=== PATIENT | female | born 1955 | race Caucasian/White ===

== ENCOUNTER 2017-05-31 17:35 | Inpatient (IN) | payer MEDICAID ==
[~2017-05-31] VITALS: Ht 167.6 cm; Wt 142.7 kg
[~2017-05-31 17:35] MED LIST: TRAMADOL HCL50 MG PO
[2017-05-31 17:44] VITALS: BP 176/97
[2017-05-31 18:10] LABS: BASO % 0.3 % (0.0-1.0); EOS # 0.4 10*3/uL (0.0-0.4); HEMATOCRIT 42.1 % (37.0-47.0); HEMOGLOBIN 13.1 g/dl (12.0-16.0); LYMPH # 2.6 10*3/uL (1.3-4.4); LYMPH % 28.8 % (27.0-41.0); MEAN CELL VOLUME 92.9 fl (81.0-99.0); MEAN CORPUSCULAR HGB 28.9 pg (27.0-31.0); MEAN CORPUSCULAR HGB CONC 31.1 g/dl (33.0-37.0); MEAN PLATELET VOLUME 9.4 fl (9.6-12.3); MONO # 0.6 10*3/uL (0.1-1.0); MONO % 7.2 % (3.0-9.0); NEUT # 5.2 10*3/uL (2.3-7.9); NEUT % 58.4 % (47.0-73.0); PLATELET COUNT AUTOMATED 235 10*3/uL (130-400); RED BLOOD COUNT 4.53 10*6/uL (4.10-5.10); RED CELL DISTRI WIDTH 13.8 % (0-14.5); WHITE BLOOD COUNT 8.8 10*3/uL (4.8-10.8)
[2017-05-31 18:26] LABS: ALBUMIN 3.1 gm/dl (3.1-4.5); ALKALINE PHOSPHATASE 111 U/L (45-117); BILIRUBIN, TOTAL 0.4 mg/dl (0.2-1.0); BUN 13 mg/dl (7-24); CARBON DIOXIDE 33 mmol/L (21-32); CHLORIDE 101 mmol/L (98-107); EST GLOM FILT AFRICAN AMERICAN > 60 ml/min; GLUCOSE 119 mg/dL (65-99); POTASSIUM 4.2 mmol/L (3.5-5.1); SGOT/AST 20 IU/L (3-35); SGPT/ALT 20 U/L (12-78); SODIUM 141 mmol/L (136-145); TOTAL PROTEIN 7.1 gm/dL (6.4-8.2)
[2017-05-31 18:29] LABS: TROPONIN I < 0.015 ng/ml (<0.045)
[2017-05-31 18:48] VITALS: BP 138/95
[2017-05-31 19:01] VITALS: BP 138/85
[2017-05-31 20:07] LABS: LA>2 REFLEX 2 HR DRAW NOW
[2017-05-31 20:39] VITALS: BP 153/91
[2017-05-31 21:05] VITALS: BP 156/74
[2017-06-01] VITALS: BP 109/70
[2017-06-01 01:47] LABS: CPK 44 U/L (26-192)
[2017-06-01 01:48] LABS: CKMB < 0.5 ng/ml (0.5-3.6)
[2017-06-01 06:26] LABS: BASO % 0.4 % (0.0-1.0); EOS # 0.4 10*3/uL (0.0-0.4); HEMATOCRIT 43.2 % (37.0-47.0); IG # 0.1 10*3/uL (0.0-0.1); LYMPH # 1.8 10*3/uL (1.3-4.4); LYMPH % 22.4 % (27.0-41.0); MEAN CELL VOLUME 95.2 fl (81.0-99.0); MEAN CORPUSCULAR HGB 28.6 pg (27.0-31.0); MEAN CORPUSCULAR HGB CONC 30.1 g/dl (33.0-37.0); MEAN PLATELET VOLUME 9.3 fl (9.6-12.3); MONO # 0.5 10*3/uL (0.1-1.0); MONO % 6.8 % (3.0-9.0); NEUT # 5.2 10*3/uL (2.3-7.9); NEUT % 64.8 % (47.0-73.0); PLATELET COUNT AUTOMATED 228 10*3/uL (130-400); RED BLOOD COUNT 4.54 10*6/uL (4.10-5.10); RED CELL DISTRI WIDTH 13.9 % (0-14.5)
[2017-06-01 06:38] LABS: CKMB < 0.5 ng/ml (0.5-3.6); CPK 40 U/L (26-192)
[2017-06-01 06:58] LABS: BUN 13 mg/dl (7-24); CARBON DIOXIDE 37 mmol/L (21-32); CHLORIDE 99 mmol/L (98-107); EST GLOM FILT AFRICAN AMERICAN > 60 ml/min; GLUCOSE 162 mg/dL (65-99); POTASSIUM 4.3 mmol/L (3.5-5.1); SODIUM 140 mmol/L (136-145)
[2017-06-01 07:09] LABS: INTERNATIONAL NORM RATIO 1.1 (2.0-3.5); PROTHROMBIN TIME 11.8 SECONDS (9.0-12.4)
[2017-06-01 07:42] LABS: FOLIC ACID 11.11 ng/mL (>5.38)
[2017-06-01 08:00] VITALS: BP 146/74
[2017-06-01 12:00] VITALS: BP 140/64
[2017-06-01 12:12] LABS: CPK 41 U/L (26-192)
[2017-06-01 12:13] LABS: CKMB < 0.5 ng/ml (0.5-3.6)
[2017-06-01 16:09] VITALS: BP 153/82
[2017-06-01 20:00] VITALS: BP 159/81
[2017-06-02] VITALS: BP 130/77
[2017-06-02 06:04] LABS: BASO % 0.2 % (0.0-1.0); HEMATOCRIT 42.4 % (37.0-47.0); IG # 0.1 10*3/uL (0.0-0.1); LYMPH # 1.2 10*3/uL (1.3-4.4); LYMPH % 9.6 % (27.0-41.0); MEAN CELL VOLUME 92.6 fl (81.0-99.0); MEAN CORPUSCULAR HGB 28.4 pg (27.0-31.0); MEAN CORPUSCULAR HGB CONC 30.7 g/dl (33.0-37.0); MEAN PLATELET VOLUME 10.1 fl (9.6-12.3); MONO # 0.1 10*3/uL (0.1-1.0); MONO % 0.8 % (3.0-9.0); NEUT # 10.8 10*3/uL (2.3-7.9); NEUT % 88.7 % (47.0-73.0); PLATELET COUNT AUTOMATED 244 10*3/uL (130-400); RED BLOOD COUNT 4.58 10*6/uL (4.10-5.10); RED CELL DISTRI WIDTH 13.4 % (0-14.5); WHITE BLOOD COUNT 12.1 10*3/uL (4.8-10.8)
[2017-06-02 06:14] LABS: ALKALINE PHOSPHATASE 95 U/L (45-117); BILIRUBIN, TOTAL 0.4 mg/dl (0.2-1.0); BUN 20 mg/dl (7-24); CARBON DIOXIDE 35 mmol/L (21-32); CHLORIDE 94 mmol/L (98-107); CHOLESTEROL 188 mg/dL (<200); EST GLOM FILT AFRICAN AMERICAN > 60 ml/min; GLUCOSE 275 mg/dL (65-99); HDL CHOLESTEROL 48 mg/dl (40-60); LDL CHOLESTEROL 123 mg/dL (9-159); POTASSIUM 4.6 mmol/L (3.5-5.1); SGOT/AST 14 IU/L (3-35); SGPT/ALT 17 U/L (12-78); SODIUM 137 mmol/L (136-145); TRIGLYCERIDES 85 mg/dl (<150); VLDL CHOLESTEROL 17 mg/dL (6-40)
[2017-06-02 08:00] VITALS: BP 124/52
[2017-06-02 12:00] VITALS: BP 132/73
[2017-06-02 16:08] LABS: ABG BASE EXCESS 8.3 mmol/L (-2.0-2.0); ABG CO2 CONTENT 34.6 mmol/L (23-27); ABG HCO3 33.1 mmol/l (22-26); ABG TEMPERATURE 98.1 F (98.0-99.0); ARTERIAL BLOOD GAS PH 7.457 (7.35-7.45); ARTERIAL BLOOD GAS PO2 64.5 mmHg (80-90)
[2017-06-02 20:00] VITALS: BP 147/89
[2017-06-03] VITALS: BP 150/90
[2017-06-03 07:03] LABS: BUN 28 mg/dl (7-24); CARBON DIOXIDE 38 mmol/L (21-32); CHLORIDE 93 mmol/L (98-107); EST GLOM FILT AFRICAN AMERICAN > 60 ml/min; GLUCOSE 284 mg/dL (65-99); SODIUM 137 mmol/L (136-145)
[2017-06-03 08:00] VITALS: BP 148/78
[2017-06-03 12:00] VITALS: BP 139/75
[2017-06-03] MEDS ORDERED: FUROSEMIDE40 MG PO (14:45)
[2017-06-03] MEDS ORDERED: K-TAB10 MEQ PO (14:45)
[2017-06-03] MEDS ORDERED: VITAMIN D1000 IU PO (14:45)
[2017-06-03] MEDS ORDERED: METFORMIN500 MG PO (14:45)
[2017-06-03] MEDS ORDERED: PREDNISONE10 MG PO (14:45)
[2017-06-03] MEDS ORDERED: PROVENTIL0.09 MG/A1 INH (14:45)
[2017-06-03] MEDS ORDERED: DOXYCYCLINE100 M3 PO (14:45)
[2017-06-03] MEDS ORDERED: DULE1ARO INH (14:45)
[2017-06-03] MEDS ORDERED: LISINOPRIL5 MG PO (14:45)
== END 2017-06-03 15:30 | disposition home health service (06) | DRG 291 ==
LOC: ED 17:35 → 5E 19:27 → EDHOLD 19:27 → 5E 19:53
PROVIDERS: Family Medicine; Internal Medicine; Internal Medicine Cardiovascular Disease; Internal Medicine Critical Care Medicine; Nurse Practitioner Family
DX: I50.33 Acute on chronic diastolic (congestive) heart failure (principal); J96.01 Acute respiratory failure with hypoxia; E44.0 Moderate protein-calorie malnutrition; Z68.43 Body mass index [BMI] 50.0-59.9, adult; J45.901 Unspecified asthma with (acute) exacerbation; E11.65 Type 2 diabetes mellitus with hyperglycemia; E66.01 Morbid (severe) obesity due to excess calories; R03.0 Elevated blood-pressure reading, without diagnosis of hypertension; G47.33 Obstructive sleep apnea (adult) (pediatric); F41.1 Generalized anxiety disorder; D72.829 Elevated white blood cell count, unspecified; G40.909 Epilepsy, unspecified, not intractable, without status epilepticus; Z88.8 Allergy status to other drugs, medicaments and biological substances; Z90.49 Acquired absence of other specified parts of digestive tract; Z87.891 Personal history of nicotine dependence; Z80.9 Family history of malignant neoplasm, unspecified; Z90.710 Acquired absence of both cervix and uterus

== ENCOUNTER → 2017-06-10 | Outpatient (CLI) | payer MEDICAID ==
[~2017-06-10] MED LIST changes: +DOXYCYCLINE100 M3 PO; +DULE1ARO INH; +FUROSEMIDE40 MG PO; +K-TAB10 MEQ PO; +LISINOPRIL5 MG PO; +METFORMIN500 MG PO; +PREDNISONE10 MG PO; +PROVENTIL0.09 MG/A1 INH; +VITAMIN D1000 IU PO
== END | disposition home or self-care (01) ==
LOC: RESCLI 02:18
DX: E11.9 Type 2 diabetes mellitus without complications (principal); I10 Essential (primary) hypertension; G47.33 Obstructive sleep apnea (adult) (pediatric); I50.9 Heart failure, unspecified; M19.90 Unspecified osteoarthritis, unspecified site

== ENCOUNTER → 2017-09-08 | Outpatient (CLI) | payer OTHER ==
--- NOTE | 2017-09-08 14:42 | NUR ---
pt was assessed for home oxygen. pt has o2 now but has not used it for a very long time. she was assessed to see if it is still needed. pt did not qualify for home o2 pt spo2 at rest 96% ra, hr 102, rr 18, B/P 130/72 PT AMULATED APPROXIMATELY 100FT SPO2 93-95% RA AT REST SPO2 97% RA, HR 115, RR 20, BP132/72 PT IS TO CONTACT CLINIC WITH INFORMATION ON THE HOME CARE INFORMATION ABD RESPIRATORY CAN CALL AND CANCEL O2
== END | disposition home or self-care (01) ==
LOC: RESCLI 04:35
DX: E11.9 Type 2 diabetes mellitus without complications (principal); G47.33 Obstructive sleep apnea (adult) (pediatric); I11.0 Hypertensive heart disease with heart failure; I50.9 Heart failure, unspecified

== ENCOUNTER 2019-11-01 14:48 | Inpatient (IN) | payer MEDICARE ==
[~2019-11-01] VITALS: Ht 167.6 cm; Wt 131.8 kg
[2019-11-01 14:56] VITALS: BP 147/80
[2019-11-01 15:21] LABS: BASO % 0.4 % (0.0-1.0); EOS # 0.2 10*3/uL (0.0-0.4); EOS % 2.6 % (1.0-4.0); HEMATOCRIT 43.7 % (37.0-47.0); HEMOGLOBIN 13.6 g/dl (12.0-16.0); LYMPH # 2.7 10*3/uL (1.3-4.4); LYMPH % 28.6 % (27.0-41.0); MEAN CELL VOLUME 92.2 fl (81.0-99.0); MEAN CORPUSCULAR HGB 28.7 pg (27.0-31.0); MEAN CORPUSCULAR HGB CONC 31.1 g/dl (33.0-37.0); MEAN PLATELET VOLUME 9.7 fl (9.6-12.3); MONO # 0.7 10*3/uL (0.1-1.0); NEUT # 5.6 10*3/uL (2.3-7.9); PLATELET COUNT AUTOMATED 283 10*3/uL (130-400); RED BLOOD COUNT 4.74 10*6/uL (4.10-5.10); RED CELL DISTRI WIDTH 13.2 % (0-14.5); WHITE BLOOD COUNT 9.3 10*3/uL (4.8-10.8)
[2019-11-01 15:36] LABS: ACT PARTIAL THROMBO TIME 27.2 SECONDS (20.0-32.1); INTERNATIONAL NORM RATIO 1.1 (2.0-3.5)
[2019-11-01 15:40] LABS: ALKALINE PHOSPHATASE 94 U/L (45-117); BUN 18 mg/dl (7-24); CHLORIDE 105 mmol/L (98-107); CREATININE 1.03 mg/dL (0.55-1.02); POTASSIUM 4.1 mmol/L (3.5-5.1); SGOT/AST 17 IU/L (3-35); SGPT/ALT 19 U/L (12-78); SODIUM 141 mmol/L (136-145)
[2019-11-01 15:49] LABS: TROPONIN I < 0.015 ng/ml (<0.045)
--- NOTE | 2019-11-01 16:09 | NUR ---
THE PT VERBALIZED THE BREATHING TREATMENT HELP HER BREATHING. CALL LIGHT IS WITHIN REACH. FAMILY IS AT THE BEDSIDE
[2019-11-01 17:50] VITALS: BP 146/71
--- NOTE | 2019-11-01 18:36 | NUR ---
[facility] , under the services of FREDDY Ryan DO with a diagnosis of COPD. Chief complaint is SOB. Patient arrived via bed from [place]. Monitor applied. Initial assessment completed. Vital signs taken and recorded. FREDDY RYAN DO notified of admission to the unit. Orders received. See assessment for past medical history, medications and allergies. Patient and/or family oriented to unit. [facility] reviewed. Clothing/patient valuable form completed. MALA DEWEY
--- NOTE | 2019-11-01 18:58 | NUR ---
ANSWERING SERVICE FOR DR. TAYLOR NOTIFIED OF NEW CONSULT, ROUTINE CONSULT.
--- NOTE | 2019-11-01 19:15 | NUR ---
PT DOES NOT KNOW HOME MEDICATIONS, FAMILY WILL BRING IN LIST TONIGHT
[2019-11-01 20:00] VITALS: BP 145/85
[2019-11-01] MEDS ORDERED: LASIX20 MG PO (21:43)
[2019-11-01] MEDS ORDERED: Amaryl2 MG PO (21:43)
[2019-11-01] MEDS ORDERED: CELEBREX100 MG PO (21:44)
[2019-11-01] MEDS ORDERED: ADVAIR 250/501 EA PO (21:45)
[2019-11-02] VITALS: BP 132/62
--- NOTE | 2019-11-02 01:38 | NUR ---
Patient resting quietly with no c/o discomfort. Respirations easy and regular. Vital signs stable. No overt distress. MAYE GUAJARDO
[2019-11-02 06:55] LABS: BASO % 0.1 % (0.0-1.0); EOS % 0.1 % (1.0-4.0); HEMATOCRIT 43.8 % (37.0-47.0); HEMOGLOBIN 13.8 g/dl (12.0-16.0); LYMPH # 1.4 10*3/uL (1.3-4.4); MEAN CELL VOLUME 91.6 fl (81.0-99.0); MEAN CORPUSCULAR HGB 28.9 pg (27.0-31.0); MEAN CORPUSCULAR HGB CONC 31.5 g/dl (33.0-37.0); MEAN PLATELET VOLUME 10.2 fl (9.6-12.3); MONO # 0.1 10*3/uL (0.1-1.0); MONO % 0.7 % (3.0-9.0); NEUT # 9.1 10*3/uL (2.3-7.9); NEUT % 85.1 % (47.0-73.0); PLATELET COUNT AUTOMATED 275 10*3/uL (130-400); RED BLOOD COUNT 4.78 10*6/uL (4.10-5.10); RED CELL DISTRI WIDTH 13.2 % (0-14.5); WHITE BLOOD COUNT 10.7 10*3/uL (4.8-10.8)
[2019-11-02 07:14] LABS: ALBUMIN 3.1 gm/dl (3.1-4.5); BUN 17 mg/dl (7-24); CHLORIDE 105 mmol/L (98-107); CHOLESTEROL 191 mg/dL (<200); CREATININE 0.85 mg/dL (0.55-1.02); HDL CHOLESTEROL 46 mg/dl (40-60); LDL CHOLESTEROL 130 mg/dL (9-159); PHOSPHOROUS 2.3 mg/dL (2.5-4.9); POTASSIUM 4.5 mmol/L (3.5-5.1); SGOT/AST 14 IU/L (3-35); SGPT/ALT 19 U/L (12-78); SODIUM 139 mmol/L (136-145); TOTAL PROTEIN 7.3 gm/dL (6.4-8.2); TRIGLYCERIDES 76 mg/dl (<150); VLDL CHOLESTEROL 15 mg/dL (6-40)
[2019-11-02 07:20] LABS: ALKALINE PHOSPHATASE 100 U/L (45-117); THYROID STIM HORMONE (HS) 0.653 uIU/ml (0.358-4.75)
[2019-11-02 08:00] VITALS: BP 140/80
--- NOTE | 2019-11-02 08:20 | NUR ---
PT RESTING IN BED. RESP-EASY AND REGULAR. NO C/O AT THIS TIME. CALL LIGHT IN REACH. SEE SHIFT ASSESSMENT.
[2019-11-02 12:00] VITALS: BP 116/71
--- NOTE | 2019-11-02 12:13 | NUR ---
Station Installation Supervisor in to talk to patient. Patient states lives at HOME with DAUGHTER. There are FEW steps in the home. Physician: CHARLOTTE SMITH Pharmacy: [facility] Home health services: NONE Patient's level of ADLs: INDEPENDENT Patient has working utilities: YES DME: HAS HOME O2 SHE WEARS AT HS. STATES COMPANY IN [employer] BUT SHE DOES NOT KNOW NAME Follow-up physician's appointment after d/c: YES Does patient want to access PORTAL?: NO Discharge plan PT LIVES AT HOME WITH HER DAUGHTER AND STATES SHE IS INDEPENDENT IN HER CARE. DENIES SHE WILL HAVE ANY HOME NEEDS ON DISCHARGE. STATES SHE ALREADY HAS HOME O2 SHE USES AT [facility], [facility] [facility] [place]. PLANS TO RETURN BACK HOME WITH DAUGHTER WHEN MEDICALLY STABLE. WILL CONTINUE TO FOLLOW. STATES SHE WILL HAVE A RIDE HOME.. HIGINIO CAMPUZANO
--- NOTE | 2019-11-02 12:34 | NUR ---
RESTING IN BED. NO C/O AT THIS TIME. CALL LIGHT IN REACH.
--- NOTE | 2019-11-02 14:06 | NUR ---
CALLED DR. ZELAYA MADE AWARE HOME MEDICATIONS NEED ORDERED.
--- NOTE | 2019-11-02 14:30 | NUR ---
RESTING IN BED. NO C/O AT THIS TIME. CALL LIGHT IN REACH.
[2019-11-02 16:00] VITALS: BP 117/60
--- NOTE | 2019-11-02 16:00 | NUR ---
RESTING IN BED. NO C/O AT THIS TIME. CALL LIGHT IN REACH. SEE SHIFT ASSESSMETN.
--- NOTE | 2019-11-02 19:30 | NUR ---
Patient resting quietly with no c/o discomfort. Respirations easy and regular. Vital signs stable. No overt distress. VIRI CASTANON
[2019-11-02 20:00] VITALS: BP 127/58
[2019-11-03] VITALS: BP 123/57
--- NOTE | 2019-11-03 01:28 | NUR ---
24 HR CHART CHECK COMPLETED
[2019-11-03 06:18] LABS: BASO % 0.2 % (0.0-1.0); EOS # 0.1 10*3/uL (0.0-0.4); EOS % 0.3 % (1.0-4.0); HEMATOCRIT 41.5 % (37.0-47.0); LYMPH # 3.6 10*3/uL (1.3-4.4); LYMPH % 21.8 % (27.0-41.0); MEAN CELL VOLUME 92.6 fl (81.0-99.0); MEAN CORPUSCULAR HGB CONC 31.3 g/dl (33.0-37.0); MEAN PLATELET VOLUME 10.3 fl (9.6-12.3); MONO # 0.9 10*3/uL (0.1-1.0); MONO % 5.5 % (3.0-9.0); NEUT # 11.8 10*3/uL (2.3-7.9); NEUT % 71.7 % (47.0-73.0); PLATELET COUNT AUTOMATED 287 10*3/uL (130-400); RED BLOOD COUNT 4.48 10*6/uL (4.10-5.10); RED CELL DISTRI WIDTH 13.6 % (0-14.5); WHITE BLOOD COUNT 16.4 10*3/uL (4.8-10.8)
[2019-11-03 06:33] LABS: BUN 18 mg/dl (7-24); CHLORIDE 105 mmol/L (98-107); CREATININE 0.84 mg/dL (0.55-1.02); POTASSIUM 3.8 mmol/L (3.5-5.1); SODIUM 140 mmol/L (136-145)
[2019-11-03 08:00] VITALS: BP 140/60
--- NOTE | 2019-11-03 08:21 | NUR ---
ASSESSMENT COMPLETED AND DOCUMENTED, PT RESTING IN BED WITH NO DISCOMFORT, WILL CONTINUE TO MONITOR, CALL LIGHT WITHIN REACH MYRON GANN
--- NOTE | 2019-11-03 09:30 | NUR ---
PATIENT RESTING COMFORTABLY IN BED RESPIRATIONS EASY, NO COMPLAINTS OF SOB, WAITING TO GO GET STRESS TEST MYRON JAVIERNRCC
--- NOTE | 2019-11-03 09:53 | NUR ---
PT JUST LEFT THE FLOOR FOR STRESS TEST VIA TRANSPORT. O2 ON RA. MYRON LAKHANI SPNRCC
--- NOTE | 2019-11-03 09:55 | NUR ---
TO STRESS TEST VIA W/C. NO VOICED C/O AT THIS TIME. ACCOMPANIED BY STUDENT NURSE.
--- NOTE | 2019-11-03 10:40 | NUR ---
INFORMED CONSENT OBTAINED FOR LEXISCAN NUCLEAR STRESS TEST WITH DR. MAURICE. RESTING EKG NSR WITH A RESTING HR OF 86 WITH BP OF 122/84. LUNGS CLEAR WITH DIMINISHED BREATH SOUNDS WITH SPO2 OF 92% ON ROOM AIR. PT COMPLETED A 1:00 LEXISCAN PROTOCOL RECEIVING LEXISCAN 0.4 MG IV OVER 10 SECONDS. HAD NO CHEST PAIN OR ANY EKG CHANGES. HAD C/O "ODD FEELING" THAT SUBSIDED IN RECOVERY. HAD A PEAK HR OF 103 WITH BP OF 124/84. LAST RECOVERY HR OF 97 WITH BP OF 120/82. AWAITING SCANNING IN STABLE CONDITION.
[2019-11-03 12:10] VITALS: BP 148/78
--- NOTE | 2019-11-03 12:10 | NUR ---
RETURN TO FLOOR. SITTING UP ON SIDE OF BED ON CELL PHONE. NO VOICED C/O AT THIS TIME. PLEASANT AND COOPERATIVE.
--- NOTE | 2019-11-03 12:54 | NUR ---
PT CONTINUES TO DENY NEEDS AT HOME ON DISCHARGE. WILL CONTINUE TO FOLLOW.
--- NOTE | 2019-11-03 13:28 | NUR ---
PATIENT SITTING UP ON SIDE OF BED, NO COMPLAINTS OF DIZZINESS,SOB,DYSURIA CALL LIGHT IN REACH, GAVE REPORT TO SERA LAKHANI SPALEKSCC
[2019-11-03] MEDS ORDERED: POTASSIUM CHLO10 ME5 PO (14:07)
[2019-11-03] MEDS ORDERED: LASIX40 MG PO (14:07)
[2019-11-03] MEDS ORDERED: PREDNISONE10 MG PO (14:07)
--- NOTE | 2019-11-03 15:43 | NUR ---
[facility] Discharge instructions reviewed with patient/family. Patient receptive and verbalizes understanding. Follow-up care arranged. Written instructions given to patient/family. MALA DEWEY
== END 2019-11-03 16:03 | disposition home or self-care (01) | DRG 190 ==
LOC: ED 14:48 → 4E 17:14 → EDHOLD 17:14 → 4E 17:39
PROVIDERS: Emergency Medicine; Internal Medicine; ADMIT Internal Medicine
DX: J44.1 Chronic obstructive pulmonary disease with (acute) exacerbation (principal); N17.0 Acute kidney failure with tubular necrosis; E44.0 Moderate protein-calorie malnutrition; I50.32 Chronic diastolic (congestive) heart failure; Z68.42 Body mass index [BMI] 45.0-49.9, adult; R07.89 Other chest pain; G47.33 Obstructive sleep apnea (adult) (pediatric); E83.39 Other disorders of phosphorus metabolism; M19.90 Unspecified osteoarthritis, unspecified site; I11.0 Hypertensive heart disease with heart failure; E11.65 Type 2 diabetes mellitus with hyperglycemia; G40.909 Epilepsy, unspecified, not intractable, without status epilepticus; I07.1 Rheumatic tricuspid insufficiency; E83.41 Hypermagnesemia; E66.01 Morbid (severe) obesity due to excess calories; Z87.891 Personal history of nicotine dependence; Z79.899 Other long term (current) drug therapy; Z90.710 Acquired absence of both cervix and uterus; Z90.49 Acquired absence of other specified parts of digestive tract; Z80.1 Family history of malignant neoplasm of trachea, bronchus and lung; Z83.6 Family history of other diseases of the respiratory system; Z82.49 Family history of ischemic heart disease and other diseases of the circulatory system; Z99.81 Dependence on supplemental oxygen

== ENCOUNTER 2019-11-11 15:22 | Emergency (ER) | payer MEDICARE ==
[~2019-11-11] VITALS: Wt 104.3 kg
[~2019-11-11 15:22] MED LIST changes: +ADVAIR 250/501 EA PO; +Amaryl2 MG PO; +CELEBREX100 MG PO; +LASIX20 MG PO; +LASIX40 MG PO; +POTASSIUM CHLO10 ME5 PO
[2019-11-11 15:59] LABS: BASO % 0.3 % (0.0-1.0); EOS # 0.3 10*3/uL (0.0-0.4); EOS % 2.4 % (1.0-4.0); HEMATOCRIT 49.1 % (37.0-47.0); HEMOGLOBIN 15.2 g/dl (12.0-16.0); LYMPH # 3.6 10*3/uL (1.3-4.4); LYMPH % 27.7 % (27.0-41.0); MEAN CELL VOLUME 91.4 fl (81.0-99.0); MEAN CORPUSCULAR HGB 28.3 pg (27.0-31.0); MEAN PLATELET VOLUME 9.9 fl (9.6-12.3); MONO # 0.8 10*3/uL (0.1-1.0); MONO % 6.1 % (3.0-9.0); NEUT # 8.3 10*3/uL (2.3-7.9); NEUT % 62.9 % (47.0-73.0); PLATELET COUNT AUTOMATED 270 10*3/uL (130-400); RED BLOOD COUNT 5.37 10*6/uL (4.10-5.10); RED CELL DISTRI WIDTH 13.5 % (0-14.5); WHITE BLOOD COUNT 13.2 10*3/uL (4.8-10.8)
[2019-11-11 16:19] LABS: ALBUMIN 3.1 gm/dl (3.1-4.5); ALKALINE PHOSPHATASE 121 U/L (45-117); BUN 18 mg/dl (7-24); CHLORIDE 103 mmol/L (98-107); CREATININE 0.99 mg/dL (0.55-1.02); SGOT/AST 19 IU/L (3-35); SGPT/ALT 25 U/L (12-78); SODIUM 138 mmol/L (136-145); TOTAL PROTEIN 6.6 gm/dL (6.4-8.2)
[2019-11-11 16:28] LABS: TROPONIN I < 0.015 ng/ml (<0.045)
[2019-11-11 19:12] VITALS: BP 127/61
== END 2019-11-11 19:55 | disposition left against medical advice (07) ==
LOC: ED 15:22
PROVIDERS: Emergency Medicine
DX: R55 Syncope and collapse (principal); G40.909 Epilepsy, unspecified, not intractable, without status epilepticus; M19.90 Unspecified osteoarthritis, unspecified site; J44.9 Chronic obstructive pulmonary disease, unspecified; E11.9 Type 2 diabetes mellitus without complications; I10 Essential (primary) hypertension; E66.01 Morbid (severe) obesity due to excess calories; G47.33 Obstructive sleep apnea (adult) (pediatric); Z90.49 Acquired absence of other specified parts of digestive tract; Z90.710 Acquired absence of both cervix and uterus; Z98.890 Other specified postprocedural states; Z87.891 Personal history of nicotine dependence; Z79.899 Other long term (current) drug therapy

== ENCOUNTER → 2021-06-13 | Outpatient (CLI) | payer OTHER ==
[~2021-06-13] MED LIST changes: +ALBUTEROL2.5 MG/0.5 INH; +BREO ELLIPTA 21 EACH INH; +LEVETIRACETAM500 MG PO; +OMNICEF300 MG PO; +POTASSIUM GLUCO99 MG PO; +PROVENTIL HFA6.7 GM INH
== END | disposition home or self-care (01) ==
LOC: RAD 11:25
PROVIDERS: ATTEND Nurse Practitioner Family
DX: J18.9 Pneumonia, unspecified organism (principal); J44.9 Chronic obstructive pulmonary disease, unspecified; Z86.79 Personal history of other diseases of the circulatory system

== ENCOUNTER 2021-06-28 18:20 | Inpatient (IN) | payer OTHER ==
[~2021-06-28] VITALS: Ht 167.6 cm; Wt 132.4 kg
[2021-06-28 18:20] VITALS: BP 122/66
[~2021-06-28 18:20] MED LIST changes: -ALBUTEROL2.5 MG/0.5 INH; -BREO ELLIPTA 21 EACH INH; -LEVETIRACETAM500 MG PO; -OMNICEF300 MG PO; -POTASSIUM GLUCO99 MG PO; -PROVENTIL HFA6.7 GM INH
[2021-06-28 18:36] LABS: BASO # 0.1 10*3/uL (0.0-0.1); BASO % 0.3 % (0.0-1.0); EOS # 0.1 10*3/uL (0.0-0.4); EOS % 0.8 % (1.0-4.0); HEMATOCRIT 39.4 % (37.0-47.0); LYMPH # 2.2 10*3/uL (1.3-4.4); LYMPH % 12.9 % (27.0-41.0); MEAN CELL VOLUME 90.2 fl (81.0-99.0); MEAN CORPUSCULAR HGB 27.5 pg (27.0-31.0); MEAN CORPUSCULAR HGB CONC 30.5 g/dl (33.0-37.0); MEAN PLATELET VOLUME 9.1 fl (9.6-12.3); MONO % 6.1 % (3.0-9.0); NEUT # 13.5 10*3/uL (2.3-7.9); NEUT % 79.3 % (47.0-73.0); PLATELET COUNT AUTOMATED 342 10*3/uL (130-400); RED BLOOD COUNT 4.37 10*6/uL (4.10-5.10); RED CELL DISTRI WIDTH 14.1 % (0-14.5)
[2021-06-28 18:52] LABS: ALBUMIN 2.7 gm/dl (3.1-4.5); ALKALINE PHOSPHATASE 92 U/L (45-117); BUN 19 mg/dl (7-24); CHLORIDE 103 mmol/L (98-107); CREATININE 0.95 mg/dL (0.55-1.02); POTASSIUM 4.2 mmol/L (3.5-5.1); SGOT/AST 8 IU/L (3-35); SGPT/ALT 14 U/L (12-78); SODIUM 138 mmol/L (136-145); TOTAL PROTEIN 7.5 gm/dL (6.4-8.2)
[2021-06-28 19:01] VITALS: BP 108/60
[2021-06-28 19:03] LABS: TROPONIN I < 0.015 ng/ml (<0.045)
[2021-06-28 20:10] VITALS: BP 107/50
[2021-06-28 21:19] VITALS: BP 126/59
[2021-06-28 23:18] VITALS: BP 124/83
[2021-06-29 00:19] VITALS: BP 112/54
[2021-06-29 01:01] VITALS: BP 116/57
[2021-06-29] MEDS ORDERED: POTASSIUM GLUCO99 MG PO (04:20)
[2021-06-29] MEDS ORDERED: LEVETIRACETAM500 MG PO (04:20)
[2021-06-29] MEDS ORDERED: BREO ELLIPTA 21 EACH INH (04:22)
[2021-06-29] MEDS ORDERED: PROVENTIL HFA6.7 GM INH (04:26)
[2021-06-29 04:27] VITALS: BP 139/75
[2021-06-29 04:40] LABS: ABG BASE EXCESS 2.7 mmol/L (-2.0-2.0); ARTERIAL BLOOD GAS PH 7.432 (7.35-7.45); ARTERIAL BLOOD GAS PO2 65.7 (80-90)
[2021-06-29 05:18] LABS: ALBUMIN 2.7 gm/dl (3.1-4.5); BUN 16 mg/dl (7-24); CHLORIDE 104 mmol/L (98-107); CREATININE 0.75 mg/dL (0.55-1.02); POTASSIUM 4.3 mmol/L (3.5-5.1); SGOT/AST 11 IU/L (3-35); SGPT/ALT 14 U/L (12-78); SODIUM 136 mmol/L (136-145); TOTAL PROTEIN 7.2 gm/dL (6.4-8.2)
[2021-06-29 05:24] LABS: ALKALINE PHOSPHATASE 95 U/L (45-117); FREE T4 1.16 ng/dl (0.76-1.46)
[2021-06-29 06:36] LABS: BASO # 0.1 10*3/uL (0.0-0.1); BASO % 0.3 % (0.0-1.0); EOS # 0.2 10*3/uL (0.0-0.4); EOS % 1.1 % (1.0-4.0); LYMPH # 2.4 10*3/uL (1.3-4.4); LYMPH % 12.3 % (27.0-41.0); MEAN CELL VOLUME 89.6 fl (81.0-99.0); MEAN CORPUSCULAR HGB 27.1 pg (27.0-31.0); MEAN CORPUSCULAR HGB CONC 30.3 g/dl (33.0-37.0); MONO # 1.5 10*3/uL (0.1-1.0); MONO % 7.5 % (3.0-9.0); NEUT # 15.2 10*3/uL (2.3-7.9); NEUT % 77.9 % (47.0-73.0); PLATELET COUNT AUTOMATED 367 10*3/uL (130-400); RED BLOOD COUNT 4.24 10*6/uL (4.10-5.10); RED CELL DISTRI WIDTH 14.3 % (0-14.5); WHITE BLOOD COUNT 19.5 10*3/uL (4.8-10.8)
[2021-06-29 08:29] VITALS: BP 140/60
[2021-06-29] MEDS ORDERED: ALBUTEROL2.5 MG/0.5 INH (14:07)
[2021-06-29 14:30] VITALS: BP 122/58
[2021-06-29 20:00] VITALS: BP 99/83
[2021-06-30] VITALS: BP 129/66
[2021-06-30 06:05] LABS: MEAN CORPUSCULAR HGB 27.3 pg (27.0-31.0); MEAN CORPUSCULAR HGB CONC 30.3 g/dl (33.0-37.0); MEAN PLATELET VOLUME 9.7 fl (9.6-12.3); PLATELET COUNT AUTOMATED 349 10*3/uL (130-400); RED BLOOD COUNT 4.22 10*6/uL (4.10-5.10); RED CELL DISTRI WIDTH 13.8 % (0-14.5)
[2021-06-30 06:18] LABS: BUN 19 mg/dl (7-24); CREATININE 0.82 mg/dL (0.55-1.02)
[2021-06-30 06:50] LABS: SODIUM 137 mmol/L (136-145)
[2021-06-30 06:51] LABS: CHLORIDE 105 mmol/L (98-107)
[2021-06-30 07:27] LABS: PLATELET SUFFICIENCY NORMAL (NORMAL); TOTAL CELLS COUNTED 100 #CELLS
[2021-06-30 08:00] VITALS: BP 140/78
[2021-06-30 12:00] VITALS: BP 104/86
[2021-06-30 15:18] LABS: ACT PARTIAL THROMBO TIME 30.3 SECONDS (20.0-32.1); INTERNATIONAL NORM RATIO 1.2 (2.0-3.5)
[2021-06-30 16:00] VITALS: BP 130/84
[2021-06-30 20:00] VITALS: BP 149/82
[2021-07-01] VITALS: BP 124/75
[2021-07-01 06:13] LABS: HEMATOCRIT 36.9 % (37.0-47.0); MEAN CELL VOLUME 90.2 fl (81.0-99.0); MEAN CORPUSCULAR HGB 27.4 pg (27.0-31.0); MEAN CORPUSCULAR HGB CONC 30.4 g/dl (33.0-37.0); MEAN PLATELET VOLUME 9.7 fl (9.6-12.3); PLATELET COUNT AUTOMATED 393 10*3/uL (130-400); RED BLOOD COUNT 4.09 10*6/uL (4.10-5.10); RED CELL DISTRI WIDTH 13.8 % (0-14.5); WHITE BLOOD COUNT 26.3 10*3/uL (4.8-10.8)
[2021-07-01 06:28] LABS: BUN 28 mg/dl (7-24); CHLORIDE 106 mmol/L (98-107); CREATININE 0.87 mg/dL (0.55-1.02); POTASSIUM 4.6 mmol/L (3.5-5.1); SODIUM 140 mmol/L (136-145)
[2021-07-01 07:33] LABS: PLATELET SUFFICIENCY NORMAL (NORMAL); TOTAL CELLS COUNTED 100 #CELLS
[2021-07-01 08:00] VITALS: BP 152/81
[2021-07-01 12:00] VITALS: BP 152/79
[2021-07-01 16:00] VITALS: BP 135/74
[2021-07-01 20:00] VITALS: BP 150/88
[2021-07-02] VITALS (11 sets, daily range): BP systolic 106–158; BP diastolic 52–94
[2021-07-02 06:04] LABS: HEMATOCRIT 37.9 % (37.0-47.0); MEAN CELL VOLUME 90.5 fl (81.0-99.0); MEAN CORPUSCULAR HGB 27.2 pg (27.0-31.0); MEAN CORPUSCULAR HGB CONC 30.1 g/dl (33.0-37.0); MEAN PLATELET VOLUME 9.6 fl (9.6-12.3); PLATELET COUNT AUTOMATED 378 10*3/uL (130-400); RED BLOOD COUNT 4.19 10*6/uL (4.10-5.10); RED CELL DISTRI WIDTH 13.9 % (0-14.5); WHITE BLOOD COUNT 18.5 10*3/uL (4.8-10.8)
[2021-07-02 06:35] LABS: BUN 27 mg/dl (7-24); CHLORIDE 105 mmol/L (98-107); CREATININE 0.79 mg/dL (0.55-1.02); POTASSIUM 4.3 mmol/L (3.5-5.1); SODIUM 140 mmol/L (136-145)
[2021-07-02 07:54] LABS: PLATELET SUFFICIENCY NORMAL (NORMAL); TOTAL CELLS COUNTED 100 #CELLS
[2021-07-03] VITALS: BP 117/71
[2021-07-03 06:27] LABS: MEAN CELL VOLUME 90.2 fl (81.0-99.0); MEAN CORPUSCULAR HGB 27.1 pg (27.0-31.0); MEAN PLATELET VOLUME 9.4 fl (9.6-12.3); NUCLEATED RED BLOOD CELL 0.2 % (0.0-0.0); PLATELET COUNT AUTOMATED 305 10*3/uL (130-400); RED CELL DISTRI WIDTH 14.4 % (0-14.5); WHITE BLOOD COUNT 12.2 10*3/uL (4.8-10.8)
[2021-07-03 07:02] LABS: BUN 20 mg/dl (7-24); CHLORIDE 104 mmol/L (98-107); CREATININE 0.81 mg/dL (0.55-1.02); POTASSIUM 3.8 mmol/L (3.5-5.1); SODIUM 140 mmol/L (136-145)
[2021-07-03 07:06] LABS: PLATELET SUFFICIENCY NORMAL (NORMAL); TOTAL CELLS COUNTED 100 #CELLS
[2021-07-03 08:00] VITALS: BP 156/85
[2021-07-03 10:07] LABS: ACID FAST SPEC PROCESSING Concentration (.)
[2021-07-03 12:00] VITALS: BP 131/73
[2021-07-03 16:00] VITALS: BP 104/61
[2021-07-03 20:00] VITALS: BP 119/68
[2021-07-04] VITALS: BP 120/73
[2021-07-04 08:00] VITALS: BP 131/73
[2021-07-04 12:00] VITALS: BP 138/68
[2021-07-04] MEDS ORDERED: OMNICEF300 MG PO (12:05)
[2021-07-04] MEDS ORDERED: PREDNISONE10 MG PO (12:05)
== END 2021-07-04 13:49 | disposition home or self-care (01) | DRG 871 ==
LOC: ED 18:20 → 4E 06-29 03:09 → EDHOLD 06-29 03:09 → 4E 06-29 11:59
PROVIDERS: Internal Medicine; Internal Medicine Critical Care Medicine; ADMIT Internal Medicine; ATTEND Internal Medicine
PROC: 5A09357 Assistance with Respiratory Ventilation, Less than 24 Consecutive Hours, Continuous Positive Airway Pressure (ICD-10-PCS; 2021-06-30)
PROC: 5A09357 Assistance with Respiratory Ventilation, Less than 24 Consecutive Hours, Continuous Positive Airway Pressure (ICD-10-PCS; 2021-07-01)
PROC: 0B918ZZ Drainage of Trachea, Via Natural or Artificial Opening Endoscopic (ICD-10-PCS; principal; 2021-07-02)
PROC: 0BB58ZX Excision of Right Middle Lobe Bronchus, Via Natural or Artificial Opening Endoscopic, Diagnostic (ICD-10-PCS; 2021-07-02)
PROC: 3E0F8GC Introduction of Other Therapeutic Substance into Respiratory Tract, Via Natural or Artificial Opening Endoscopic (ICD-10-PCS; 2021-07-02)
PROC: 5A09357 Assistance with Respiratory Ventilation, Less than 24 Consecutive Hours, Continuous Positive Airway Pressure (ICD-10-PCS; 2021-07-02)
PROC: 5A09357 Assistance with Respiratory Ventilation, Less than 24 Consecutive Hours, Continuous Positive Airway Pressure (ICD-10-PCS; 2021-07-03)
DX: A41.9 Sepsis, unspecified organism (principal); E43 Unspecified severe protein-calorie malnutrition; J18.8 Other pneumonia, unspecified organism; E66.2 Morbid (severe) obesity with alveolar hypoventilation; I50.32 Chronic diastolic (congestive) heart failure; J44.0 Chronic obstructive pulmonary disease with (acute) lower respiratory infection; J44.1 Chronic obstructive pulmonary disease with (acute) exacerbation; J96.10 Chronic respiratory failure, unspecified whether with hypoxia or hypercapnia; Z68.42 Body mass index [BMI] 45.0-49.9, adult; G40.909 Epilepsy, unspecified, not intractable, without status epilepticus; M19.90 Unspecified osteoarthritis, unspecified site; E83.41 Hypermagnesemia; I11.0 Hypertensive heart disease with heart failure; J98.09 Other diseases of bronchus, not elsewhere classified; E11.65 Type 2 diabetes mellitus with hyperglycemia; D64.9 Anemia, unspecified; Z90.49 Acquired absence of other specified parts of digestive tract; Z90.710 Acquired absence of both cervix and uterus; Z87.891 Personal history of nicotine dependence; Z83.6 Family history of other diseases of the respiratory system; Z82.49 Family history of ischemic heart disease and other diseases of the circulatory system; Z83.3 Family history of diabetes mellitus; Z81.8 Family history of other mental and behavioral disorders; Z79.899 Other long term (current) drug therapy; Z79.84 Long term (current) use of oral hypoglycemic drugs; Z80.1 Family history of malignant neoplasm of trachea, bronchus and lung

== ENCOUNTER → 2021-07-26 | Outpatient (CLI) | payer OTHER ==
[~2021-07-26] MED LIST changes: +ALBUTEROL2.5 MG/0.5 INH; +BREO ELLIPTA 21 EACH INH; +LEVETIRACETAM500 MG PO; +OMNICEF300 MG PO; +POTASSIUM GLUCO99 MG PO; +PROVENTIL HFA6.7 GM INH
== END | disposition home or self-care (01) ==
LOC: RAD 13:54
PROVIDERS: ATTEND Nurse Practitioner Family
DX: J18.9 Pneumonia, unspecified organism (principal); I51.7 Cardiomegaly; M41.84 Other forms of scoliosis, thoracic region; M19.011 Primary osteoarthritis, right shoulder

== ENCOUNTER 2023-01-27 09:06 | Emergency (ER) | payer OTHER ==
[~2023-01-27] VITALS: Wt 135.2 kg
[2023-01-27 09:13] VITALS: BP 155/85
[2023-01-27 09:42] LABS: BASO % 0.3 % (0.0-1.0); EOS # 0.3 10*3/uL (0.0-0.4); HEMATOCRIT 46.2 % (37.0-47.0); LYMPH # 2.2 10*3/uL (1.3-4.4); LYMPH % 21.6 % (27.0-41.0); MEAN CELL VOLUME 90.9 fl (81.0-99.0); MEAN CORPUSCULAR HGB 28.3 pg (27.0-31.0); MEAN CORPUSCULAR HGB CONC 31.2 g/dl (33.0-37.0); MEAN PLATELET VOLUME 9.2 fl (9.6-12.3); MONO # 0.7 10*3/uL (0.1-1.0); MONO % 6.8 % (3.0-9.0); PLATELET COUNT AUTOMATED 265 10*3/uL (130-400); RED BLOOD COUNT 5.08 10*6/uL (4.10-5.10); RED CELL DISTRI WIDTH 13.8 % (0-14.5); WHITE BLOOD COUNT 10.3 10*3/uL (4.8-10.8)
[2023-01-27] MEDS ORDERED: FLOMAX0.4 MG PO (09:45)
[2023-01-27] MEDS ORDERED: Ondansetron4 MG PO (09:45)
[2023-01-27] MEDS ORDERED: Percocet 325 MG1 TAB PO (09:45)
[2023-01-27 09:57] LABS: ALKALINE PHOSPHATASE 116 U/L (46-116); BUN 13 mg/dl (9-23); CHLORIDE 105 mmol/L (98-107); LIPASE 35 U/L (12-53); POTASSIUM 4.6 mmol/L (3.4-5.1); SGPT/ALT 14 U/L (10-49); TOTAL PROTEIN 7.1 gm/dL (6.0-8.0)
[2023-01-27] MEDS ORDERED: CEFDINIR300 MG PO (10:36)
[2023-01-27 10:55] LABS: BILIRUBIN Negative (Negative); BLOOD 3+ (Negative); CLARITY Cloudy (Clear); COLOR Yellow (Yellow); GLUCOSE Negative (Negative); KETONE Negative (Negative); LEUKO ESTERASE Trace (Negative); NITRITE Negative (Negative); PH 5.5 (4.5-8.0); SPECIFIC GRAVITY 1.025 (1.001-1.030); UROBILINOGEN 0.2 E.U./dl (0.0-1.0)
[2023-01-27 11:04] LABS: BACTERIA 3+; EPITHELIAL CELLS 16-20; RBC TNTC rbc/hpf (0-2); YEAST 1+
== END 2023-01-27 11:29 | disposition home or self-care (01) ==
LOC: ED 09:06
PROVIDERS: Emergency Medicine
DX: N13.2 Hydronephrosis with renal and ureteral calculous obstruction (principal); Z90.49 Acquired absence of other specified parts of digestive tract; Z79.899 Other long term (current) drug therapy; Z90.89 Acquired absence of other organs; Z90.710 Acquired absence of both cervix and uterus; Z87.891 Personal history of nicotine dependence

== ENCOUNTER → 2023-03-12 | Outpatient (CLI) | payer OTHER ==
[~2023-03-12] MED LIST changes: +CEFDINIR300 MG PO; +FLOMAX0.4 MG PO; +Ondansetron4 MG PO; +Percocet 325 MG1 TAB PO
== END | disposition home or self-care (01) ==
LOC: RAD 13:25
PROVIDERS: ATTEND Urology
DX: N20.0 Calculus of kidney (principal); M16.0 Bilateral primary osteoarthritis of hip; Z90.49 Acquired absence of other specified parts of digestive tract

== ENCOUNTER → 2023-03-25 | Outpatient (CLI) | payer OTHER | END | disposition home or self-care (01) | LOC: RAD 13:42 | PROVIDERS: ATTEND Urology | DX: N20.0 Calculus of kidney (principal); Z98.890 Other specified postprocedural states ==